=== PATIENT | female | born 1950 | race Caucasian/White ===

== ENCOUNTER 2016-11-28 21:24 | Inpatient (IN) | payer OTHER ==
[2016-11-28 22:00] VITALS: BMI 29.7
--- NOTE | 2016-11-28 22:01 | PDOC ---
History of Present Illness - History of Present Illness Initial Comments: 11/28/16 22:53 Patient is a 66 year old female with significant medical hx of HTN, HLD, DM, GERD, CAD, hemorrhoids s/p hemorrhoidectomy, and nephrolithiasis who is presenting to the ED with one week of progressive RLQ pain. Patient reports her RLQ pain is constant and non-radiating. She does not endorse any modifying or alleviating factors. The patient states that two days ago she began having multiple episodes of nausea, vomiting and diarrhea. Today the patient had diarrhea five times. Her last episode of vomiting occurred in the ED prior to interview. The patient was able to walk into the ED upon arrival. Denies any fevers chills, or complaints. Surgical Hx: neurostimulator for urinary incontinence, gastric bypass, hemorrhoidectomy, hernia, cholecystectomy PCP: Orin Negro MD GI: Joseph Potter MD <Susana Jones - Last Filed: 11/28/16 23:06> <Judith Emanuel - Last Filed: 11/29/16 00:08> <Amalia Condon - Last Filed: 11/29/16 06:50> - General Chief Complaint: Nausea/Vomiting Stated Complaint: STOMACH PAIN Time Seen by Provider: 11/28/16 21:54 Past History <Susana Jones - Last Filed: 11/28/16 23:06> - Past Medical History Anemia: No Asthma: No Cancer: No Cardiac Disorders: Yes (CAD) CVA: No COPD: No CHF: No Dementia: No Diabetes: Yes GI Disorders: Yes (DIVERTICULITIS, DYSPHAGIA, GERD) Disorders: Yes (kidney stone) HTN: Yes Hypercholesterolemia: Yes Kidney Stones: Yes Liver Disease: No Seizures: No Thyroid Disease: No - Surgical History Abdominal Surgery: Yes (hernia; GASTRIC BYPASS10/07) Appendectomy: No Cardiac Surgery: No Cholecystectomy: Yes Lung Surgery: No Neurologic Surgery: No Orthopedic Surgery: No - Psycho/Social/Smoking Cessation Hx Anxiety: No Suicidal Ideation: No Smoking Status: No Smoking History: Never smoked Have you smoked in the past 12 months: No Number of Cigarettes Smoked Daily: 0 Information on smoking cessation initiated: No Hx Alcohol Use: No Drug/Substance Use Hx: No Substance Use Type: None <Judith Emanuel - Last Filed: 11/29/16 00:08> <Amalia Condon - Last Filed: 11/29/16 06:50> - Past Medical History Allergies/Adverse Reactions: Allergies Allergy/AdvReac Type Severity Reaction Status Date / Time No Known Drug Allergies Allergy Verified 11/28/16 21:39 Home Medications: Ambulatory Orders Acetaminophen [Extra Strength Non-Aspirin] 500 mg PO Q4H 11/29/16 Cetirizine HCl 10 mg PO HS 11/29/16 Clonazepam [Klonopin -] 0.5 mg PO TID 11/29/16 Dexlansoprazole [Dexilant] 30 mg PO DAILY 11/29/16 Diphenhydramine HCl [Benadryl -] 50 mg PO ONCE 11/29/16 Duloxetine HCl [Cymbalta -] 60 mg PO BID 11/29/16 Escitalopram Oxalate [Lexapro -] 20 mg PO DAILY 11/29/16 Gabapentin 300 mg PO HS 11/29/16 Meloxicam [Mobic] 15 mg PO DAILY 11/29/16 Montelukast Na [Singulair -] 10 mg PO DAILY 11/29/16 Olopatadine HCl [Pataday] 2.5 ml OP DAILY 11/29/16 Pramipexole Dihydrochloride [Mirapex -] 0.25 mg PO DAILY 11/29/16 Simvastatin 20 mg PO DAILY 11/29/16 Vitamin B Complex [B Complex] 1 tab PO DAILY 11/29/16 Review of Systems - Review of Systems Comments:: 11/28/16 23:01 CONSTITUTIONAL: Absent: fever, chills, diaphoresis, generalized weakness, malaise, loss of appetite HEENT: Absent: rhinorrhea, nasal congestion, throat pain, throat swelling, difficulty swallowing, mouth swelling, ear pain, eye pain, visual changes CARDIOVASCULAR: Absent: chest pain, syncope, palpitations, irregular heart rate, lightheadedness , peripheral edema RESPIRATORY: Absent: cough, shortness of breath, dyspnea with exertion, orthopnea, wheezing, stridor, hemoptysis GASTROINTESTINAL: Present: RLQ pain, nausea, vomiting, diarrhea Absent: abdominal distension, constipation, melena, hematochezia GENITOURINARY: Absent: dysuria, frequency, urgency, hesitancy, hematuria, flank pain, genital pain MUSCULOSKELETAL: Absent: myalgia, arthralgia, joint swelling SKIN: Absent: rash, itching, pallor HEMATOLOGIC/IMMUNOLOGIC: Absent: easy bleeding, easy bruising, lymphadenopathy, frequent infections ENDOCRINE: Absent: unexplained weight gain, unexplained weight loss, heat intolerance, cold intolerance NEUROLOGIC: Absent: headache, focal weakness or paresthesia, dizziness, unsteady gait, seizure, mental status changes, bladder or bowel incontinence. PSYCHIATRIC: Absent: anxiety, depression, suicidal or homicidal ideation, hallucinations <Susana Jones - Last Filed: 11/28/16 23:06> *Physical Exam - Vital Signs Last Vital Signs Temp Pulse Resp BP Pulse Ox 97.7 F 71 19 126/67 98 11/28/16 21:41 11/28/16 21:41 11/28/16 21:41 11/28/16 21:41 11/28/16 21:41 - Physical Exam Comments: 11/28/16 23:02 GENERAL: Well developed, well nourished. Awake and alert. No acute distress. HEENT: Normocephalic, atraumatic. PERRLA, EOMI. No conjunctival pallor. Sclera are non- icteric. Moist mucous membranes. Oropharynx is clear. NECK: Supple. Full ROM. No JVD. Carotid pulses 2+ and symmetric, without bruits. No thyromegaly. No lymphadenopathy. CARDIOVASCULAR: Regular rate and rhythm. No murmurs, rubs, or gallops. Distal pulses are 2+ and symmetric. PULMONARY: No evidence of respiratory distress. Lungs clear to auscultation bilaterally. No wheezing, rales or rhonchi. ABDOMINAL: Soft. RLQ tenderness. Non-distended. No rebound or guarding. No organomegaly. Normoactive bowel sounds. MUSCULOSKELETAL: Normal range of motion at all joints. No bony deformities or tenderness. No CVA tenderness. EXTREMITIES: No cyanosis. No clubbing. No edema. No calf tenderness. SKIN: Warm and dry. Normal capillary refill. No rashes. No jaundice. NEUROLOGICAL: Alert, awake, appropriate. Cranial nerves 2-12 intact. Normal speech. Gait is normal without ataxia. PSYCHIATRIC: Cooperative. Good eye contact. Appropriate mood and affect. <Susana Jones - Last Filed: 11/28/16 23:06> - Vital Signs Last Vital Signs Temp Pulse Resp BP Pulse Ox 97.7 F 71 19 126/67 98 11/28/16 21:41 11/28/16 21:41 11/28/16 21:41 11/28/16 21:41 11/28/16 21:41 <Judith Emanuelh - Last Filed: 11/29/16 00:08> - Vital Signs Last Vital Signs Temp Pulse Resp BP Pulse Ox 97.7 F 71 19 126/67 98 11/28/16 21:41 11/28/16 21:41 11/28/16 21:41 11/28/16 21:41 11/28/16 21:41 <CondonAmalia - Last Filed: 11/29/16 06:50> Heart Score/ECG Review #1 11/28/16 23:06 Normal sinus rhythm at 63 bpm Possible Left atrial enlargement Left ventricular hypertrophy Inferior infarct, age undetermined Abnormal ECG <Susana Jones - Last Filed: 11/28/16 23:06> ED Treatment Course - LABORATORY CBC & Chemistry Diagram: 11/28/16 22:05 11/28/16 22:05 - ADDITIONAL ORDERS Additional order review: Laboratory Results 11/28/16 22:05 Sodium Cancelled Potassium Cancelled Chloride Cancelled Carbon Dioxide Cancelled Anion Gap Cancelled BUN Cancelled Creatinine Cancelled Creat Clearance w eGFR Cancelled Random Glucose Cancelled Calcium Cancelled Total Bilirubin Cancelled AST Cancelled ALT Cancelled Alkaline Phosphatase Cancelled Total Protein Cancelled Albumin Cancelled Lipase Cancelled 11/28/16 22:05 RBC 4.67 MCV 87.7 MCHC 32.1 RDW 13.4 MPV 7.6 Neutrophils % 62.8 D Lymphocytes % 23.6 D Monocytes % 9.6 D Eosinophils % 2.8 D Basophils % 1.2 - Medications Given in the ED: ED Medications Discontinued Medications Generic Name Dose Route Start Last Admin Trade Name Freq PRN Reason Stop Dose Admin Hydromorphone HCl 0.5 mg 11/28/16 22:08 11/28/16 22:24 Dilaudid Injection - IVPUSH 11/28/16 22:09 0.5 mg ONCE ONE Administration Ondansetron HCl 4 mg 11/28/16 22:02 11/28/16 22:16 Zofran Injection IVPB 11/28/16 22:03 4 mg ONCE ONE Administration <Susana Jones - Last Filed: 11/28/16 23:06> - LABORATORY CBC & Chemistry Diagram: 11/28/16 22:05 11/28/16 22:05 <Judith Emanuel - Last Filed: 11/29/16 00:08> - LABORATORY CBC & Chemistry Diagram: 11/28/16 22:05 11/28/16 23:55 - ADDITIONAL ORDERS Additional order review: Laboratory Results 11/29/16 11/28/16 11/28/16 00:25 23:55 23:11 Sodium 145 Cancelled Potassium 4.4 Cancelled Chloride 111 H Cancelled Carbon Dioxide 23 Cancelled Anion Gap 11 Cancelled BUN 17 Cancelled Creatinine 0.6 D Cancelled Creat Clearance w eGFR > 60 Cancelled Random Glucose 102 D Cancelled Calcium 8.3 L Cancelled Total Bilirubin 0.2 D Cancelled AST 12 L D Cancelled ALT 20 D Cancelled Alkaline Phosphatase 133 H D Cancelled Total Protein 6.7 Cancelled Albumin 3.2 L Cancelled Lipase Urine Color Straw Urine Appearance Clear Urine pH 6.0 Urine Protein Negative Urine Glucose (UA) Negative Urine Ketones Negative Urine Blood Negative Urine Nitrite Negative Urine Bilirubin Negative Urine Urobilinogen Negative Ur Leukocyte Esterase Negative 11/28/16 22:05 Sodium Cancelled Potassium Cancelled Chloride Cancelled Carbon Dioxide Cancelled Anion Gap Cancelled BUN Cancelled Creatinine Cancelled Creat Clearance w eGFR Cancelled Random Glucose Cancelled Calcium Cancelled Total Bilirubin Cancelled AST Cancelled ALT Cancelled Alkaline Phosphatase Cancelled Total Protein Cancelled Albumin Cancelled Lipase Cancelled Urine Color Urine Appearance Urine pH Urine Protein Urine Glucose (UA) Urine Ketones Urine Blood Urine Nitrite Urine Bilirubin Urine Urobilinogen Ur Leukocyte Esterase 11/28/16 22:05 RBC 4.67 MCV 87.7 MCHC 32.1 RDW 13.4 MPV 7.6 Neutrophils % 62.8 D Lymphocytes % 23.6 D Monocytes % 9.6 D Eosinophils % 2.8 D Basophils % 1.2 - Medications Given in the ED: ED Medications Discontinued Medications Generic Name Dose Route Start Last Admin Trade Name Freq PRN Reason Stop Dose Admin Hydromorphone HCl 0.5 mg 11/28/16 22:08 11/28/16 22:24 Dilaudid Injection - IVPUSH 11/28/16 22:09 0.5 mg ONCE ONE Administration Sodium Chloride 1,000 mls @ 1,000 mls/hr 11/28/16 22:02 11/28/16 22:16 Normal Saline - IV 11/28/16 23:01 1,000 mls/hr ASDIR STA Administration Ondansetron HCl 4 mg 11/28/16 22:02 11/28/16 22:16 Zofran Injection IVPB 11/28/16 22:03 4 mg ONCE ONE Administration <Amalia Condon - Last Filed: 11/29/16 06:50> Medical Decision Making - Medical Decision Making 11/28/16 23:34 66 yo female p/w Vomiting,nausea and diarrhea pt had gastric bypass in 2012, neustimulator for bladder incontinence on exam she had RLQ pain imp-r/o appendicits,sbo,gastroenteritis plan ct scan,antiemetics,IVF 11/29/16 00:09 <Judith Emanuel - Last Filed: 11/29/16 00:08> - Medical Decision Making 11/29/16 02:43 Patient Name: Meghann Matthews THIS IS A PRELIMINARYREPORT FROM [facility] EXAM : CT abdomen and pelvis with contrast IMAGES: 509 EXAM DATE AND TIME: 01:57:34.0 REASON FOR EXAM: Rule out appendicitis COMPARISON: CT abdomen and pelvis March 30, 2012 FINDINGS: Negative for appendicitis. Normal appendix visualized. Minimal dilatation of some loops of distal ileum in the right abdomen. Terminal ileum is collapsed but transition from minimal dilatation to collapsed is gradual and the S. is not definitively an obstruction.. Could be due to peristalsis or ileus. Nevertheless, followup recommended if symptoms persist. The gallbladder is somewhat distended and there are multiple small gallstones. Not present back in 2011. Tiny left renal cyst. Otherwise normal kidneys urinary tract and urinary bladder. Normal liver. Normal spleen. Normal pancreas. Normal adrenal glands. Prior gastric surgery. Small hiatal hernia. Patient has developed a slight anterolisthesis of L4 on L5 since 2011. THIS DOCUMENT HAS BEEN ELECTRONICALLY SIGNED 11/29/16 06:50 Dr. Moran aware of the patient. <Amalia Condon - Last Filed: 11/29/16 06:50> *DC/Admit/Observation/Transfer - Attestations Scribe Attestion: 11/28/16 23:02 Documentation prepared by Susana Jones, acting as biomedical instrument technician for Judith Emanuel MD. <Susana Jones - Last Filed: 11/28/16 23:06> <Judith Emanuel - Last Filed: 11/29/16 00:08> - Discharge Dispostion Admit: Yes <Amalia Condon - Last Filed: 11/29/16 06:50> Diagnosis at time of Disposition: Abdominal pain, Ileus, Intractable vomiting with nausea - Referrals
[2016-11-28] MEDS ORDERED: SODIUM CHLORIDE 1,000 ML IV STA (22:02)
[2016-11-28] MEDS ORDERED: ONDANSETRON 4 MG/2 ML VIAL IVPB ONE (22:02)
[2016-11-28] MEDS ORDERED: HYDROmorphone HCL CARPU-JECT 1 MG/1 ML DISP.SYRIN IVPUSH ONE (22:08)
[2016-11-28] MEDS ORDERED: ONDANSETRON 4 MG/2 ML VIAL ONE (22:11)
[2016-11-28 22:14] LABS: BASOPHIL 1.2 % (0-2.0); EOSINOPHIL 2.8 % (0-4.5); MCH 28.2 pg (25.7-33.7); MCHC 32.1 g/dl (32.0-36.0); MEAN CELL VOLUME 87.7 fl (80-96); MEAN PLT VOLUME 7.6 fl (7.5-11.1); NEUTROPHILS 62.8 % (42.8-82.8); PLATELET COUNT 363 K/MM3 (134-434); RDW 13.4 % (11.6-15.6)
[2016-11-28] MEDS ORDERED: HYDROmorphone HCL CARPU-JECT 1 MG/1 ML DISP.SYRIN ONE (22:22)
[2016-11-29 00:32] LABS: ALBUMIN 3.2 g/dl (3.4-5.0); ANION GAP 11 (8-16); BILIRUBIN,TOTAL 0.2 mg/dL (0.2-1.0); CALCIUM 8.3 mg/dL (8.5-10.1); CO2 23 mmol/L (21-32); COCKROFT - GAULT 110.9505; CREATININE 0.6 mg/dL (0.55-1.02); GLUCOSE,RANDOM 102 mg/dL (74-106); SGOT/AST 12 U/L (15-37); SGPT/ALT 20 U/L (12-78); TOT PROT 6.7 g/dl (6.4-8.2)
[2016-11-29 00:33] LABS: ALK PHOS 133 U/L (45-117)
[2016-11-29 01:29] LABS: URINE APPEARANCE CLEAR; URINE BILIRUBIN NEGATIVE (NEGATIVE); URINE BLOOD NEGATIVE (NEGATIVE); URINE COLOR STRAW; URINE GLUCOSE (UA) NEGATIVE (NEGATIVE); URINE KETONE NEGATIVE (NEGATIVE); URINE LEUK ESTERASE NEGATIVE (NEGATIVE); URINE NITRITE NEGATIVE (NEGATIVE); URINE PROTEIN NEGATIVE (NEGATIVE); URINE UROBILINOGEN NEGATIVE E.U./dl (0.2-1.0)
[2016-11-29] MEDS ORDERED: morphine CARPU-JECT 2 MG/1 ML DISP.SYRIN IVPUSH ONE (02:54)
[2016-11-29] MEDS ORDERED: morphine CARPU-JECT 2 MG/1 ML DISP.SYRIN ONE (03:18)
[2016-11-29] MEDS: DEXTROSE 5%-NORMAL SALINE 1,000 ML IV SCH (03:37)
[2016-11-29] MEDS: DULoxetine HCL 30 MG CAPSULE.DR (FP) PO SCH ×2 (10:06→21:44)
[2016-11-29] MEDS: PANTOPRAZOLE SODIUM 100 ML IVPB SCH (10:06)
[2016-11-29] MEDS: HEPARIN NA (PORCINE) 5,000 UNITS/ML 1ML VIAL SQ SCH ×2 (10:06→21:42)
[2016-11-29] MEDS: D5-1/2NS+20 MEQ KCL - 1,000 ML IV SCH ×2 (10:13→21:42)
[2016-11-29] MEDS: PRAMIPEXOLE DIHYDROCHLORIDE 0.25 MG TABLET PO SCH ×2 (10:13→15:53)
[2016-11-29] MEDS: LORATADINE 10 MG TABLET PO SCH (10:13)
--- NOTE | 2016-11-29 11:02 | HP ---
Admitting History and Physical - Primary Care Physician PCP: Orin Negro I - Admission Chief Complaint: came in for right hip pain and right lower quadrant pain History of Present Illness: - History of Present Illness Initial Comments: 11/28/16 22:53 Patient is a 66 year old female with significant medical hx of HTN, HLD, DM, GERD, CAD, hemorrhoids s/p hemorrhoidectomy, and nephrolithiasis who is presenting to the ED with one week of progressive RLQ pain. Patient reports her RLQ pain is constant and non-radiating. She does not endorse any modifying or alleviating factors. The patient states that two days ago she began having multiple episodes of nausea, vomiting and diarrhea. Today the patient had diarrhea five times. Her last episode of vomiting occurred in the ED prior to interview. The patient was able to walk into the ED upon arrival. Denies any fevers chills, or complaints. Surgical Hx: neurostimulator for urinary incontinence, gastric bypass, hemorrhoidectomy, hernia, cholecystectomy PCP: Orin Negro MD GI: Joseph Potter MD today per patient right lower back pain radiating to right groin and right hip no vomitting History Source: Patient, Medical Record - Past Medical History Cardiovascular: Yes: HTN, Hyperlipdemia Gastrointestinal: Yes: GERD ...: No Endocrine: Yes: Diabetes Mellitus - Smoking History Smoking history: Never smoked Have you smoked in the past 12 months: No Aproximately how many cigarettes per day: 0 - Alcohol/Substance Use Hx Alcohol Use: No Home Medications - Allergies Allergies/Adverse Reactions: Allergies Allergy/AdvReac Type Severity Reaction Status Date / Time No Known Drug Allergies Allergy Verified 11/28/16 21:39 - Home Medications Home Medications: Ambulatory Orders Acetaminophen [Extra Strength Non-Aspirin] 500 mg PO Q4H 11/29/16 Cetirizine HCl 10 mg PO HS 11/29/16 Clonazepam [Klonopin -] 0.5 mg PO TID 11/29/16 Dexlansoprazole [Dexilant] 30 mg PO DAILY 11/29/16 Diphenhydramine HCl [Benadryl -] 50 mg PO ONCE 11/29/16 Duloxetine HCl [Cymbalta -] 60 mg PO BID 11/29/16 Escitalopram Oxalate [Lexapro -] 20 mg PO DAILY 11/29/16 Gabapentin 300 mg PO HS 11/29/16 Meloxicam [Mobic] 15 mg PO DAILY 11/29/16 Montelukast Na [Singulair -] 10 mg PO DAILY 11/29/16 Olopatadine HCl [Pataday] 2.5 ml OP DAILY 11/29/16 Pramipexole Dihydrochloride [Mirapex -] 0.25 mg PO DAILY 11/29/16 Simvastatin 20 mg PO DAILY 11/29/16 Vitamin B Complex [B Complex] 1 tab PO DAILY 11/29/16 Physical Examination Vital Signs: Vital Signs Temperature 98.3 F 11/29/16 04:09 Pulse Rate 62 11/29/16 04:09 Respiratory Rate 16 11/29/16 04:09 Blood Pressure 106/59 11/29/16 04:09 O2 Sat by Pulse Oximetry (%) 98 11/29/16 04:12 Constitutional: Yes: Calm HENT: Yes: Other (hearing aide in left ear) Neck: Yes: Trachea Midline Cardiovascular: Yes: Regular Rate and Rhythm, S1, S2 Respiratory: Yes: CTA Bilaterally Gastrointestinal: Yes: Normal Bowel Sounds, Soft Musculoskeletal: Yes: Other (tenderness in right paraspinal and spinal region) Imaging - Results Cat Scan: Report Reviewed Problem List - Problems (1) Abdominal pain Assessment/Plan: spoke to surgery CT scan is benign recommend to feed patient pain is more from lower back and radiating to right groin and thigh xray of hip and xray of spine- r/o foramin stenosis and disc disease neurontin and analgesics dvt ppx Code(s): R10.9 - UNSPECIFIED ABDOMINAL PAIN
--- NOTE | 2016-11-29 11:44 | EKG ---
Test Reason : Blood Pressure : / mmHG Vent. Rate : 063 BPM Atrial Rate : 063 BPM P-R Int : 158 ms QRS Dur : 078 ms QT Int : 412 ms P-R-T Axes : 046 004 014 degrees QTc Int : 421 ms NORMAL SINUS RHYTHM POSSIBLE LEFT ATRIAL ENLARGEMENT LEFT VENTRICULAR HYPERTROPHY INFERIOR INFARCT , AGE UNDETERMINED ABNORMAL ECG WHEN COMPARED WITH ECG OF 18-JAN-2003 22:38, VENT. RATE HAS DECREASED BY 35 BPM T WAVE VARIATION Confirmed by CHU ABDI, JEREMIAH ([id number]) on 11/29/2016 11:43:52 AM Referred By: Confirmed By:JEREMIAH SAGE MD
[2016-11-29] MEDS ORDERED: ACETAMINOPHEN 500 MG TABLET (FP) ONE (15:50)
[2016-11-29] MEDS: clonazePAM 0.5 MG TABLET PO SCH ×2 (15:53→21:41)
--- NOTE | 2016-11-29 16:38 | PN ---
Progress Note (short form) - Note Progress Note: surgery pt seen and examined earlier. computer system was down. full consult dictated. 66f with multiple medical problems presented with upper abd pain, rlq pain, nausea and vomiting with CT showing a gallstone, no cholecystitis, and possible ileus with normal appendix. Pt is now pain free. wbc 10. on exam abd is soft, nt, previous c-sec scar and lap sleeve gastrectomy scar. Plan- suspect enteritis. clinically not acute cholecystitis or sbo. recommend trial of diet and discharge if tolerates.
--- NOTE | 2016-11-29 17:23 | CON.GI ---
Consult Consult Specialty:: GASTROENTEROLOGY - History of Present Illness Chief Complaint: DIARRHEA/VOMITING History of Present Illness: 66 YEAR OLD FEMALE WITH HISTORY OF GASTRIC BYPASS(WITH RECENT WEIGHT GAIN), REDUNDANT COLON AND CONSTIPATION PLUS GERD FROM SURGICAL CHANGES IN HER STOMACH ADMITTED WITH NAUSEA, VOMITING, ABDOMINAL PAIN AND DIARRHEA. SHE WAS MADE NPO, GIVEN IV FLUIDS. SHE DENIES FEVER. SHE WAS AT A [employer] THIS WEEKEND AND AFTER HAD THESE SYMPTOMS. SHE HAS NO DIARRHEA SINCE ADMISSION AND HAS NO MELENA OR BRBPR. SHE HAS NO ABDOMINAL PAIN NOW - History Source History Provided By: Patient Limitations to Obtaining History: No Limitations - Past Medical History Cardio/Vascular: Yes: HTN, Hyperlipdemia Gastrointestinal: Yes: GERD, Hemorrhoids, Other (GASTRIC BYPASS) ...: No Endocrine: Yes: Diabetes Mellitus - Past Surgical History Additional Surgical History: ABOVE - Alcohol/Substance Use Hx Alcohol Use: No - Smoking History Smoking history: Never smoked Have you smoked in the past 12 months: No Aproximately how many cigarettes per day: 0 Home Medications - Allergies Allergies/Adverse Reactions: Allergies Allergy/AdvReac Type Severity Reaction Status Date / Time No Known Drug Allergies Allergy Verified 11/28/16 21:39 - Home Medications Home Medications: Ambulatory Orders Acetaminophen [Extra Strength Non-Aspirin] 500 mg PO Q4H 11/29/16 Cetirizine HCl 10 mg PO HS 11/29/16 Clonazepam [Klonopin -] 0.5 mg PO TID 11/29/16 Dexlansoprazole [Dexilant] 30 mg PO DAILY 11/29/16 Diphenhydramine HCl [Benadryl -] 50 mg PO ONCE 11/29/16 Duloxetine HCl [Cymbalta -] 60 mg PO BID 11/29/16 Escitalopram Oxalate [Lexapro -] 20 mg PO DAILY 11/29/16 Gabapentin 300 mg PO HS 11/29/16 Meloxicam [Mobic] 15 mg PO DAILY 11/29/16 Montelukast Na [Singulair -] 10 mg PO DAILY 11/29/16 Olopatadine HCl [Pataday] 2.5 ml OP DAILY 11/29/16 Pramipexole Dihydrochloride [Mirapex -] 0.25 mg PO DAILY 11/29/16 Simvastatin 20 mg PO DAILY 11/29/16 Vitamin B Complex [B Complex] 1 tab PO DAILY 11/29/16 Family Disease History - Family Disease History Family History: Unremarkable Review of Systems - Review of Systems Constitutional: reports: Loss of Appetite, Weakness Eyes: reports: No Symptoms HENT: reports: No Symptoms Neck: reports: No Symptoms Cardiovascular: reports: No Symptoms Respiratory: reports: No Symptoms Gastrointestinal: reports: Abdominal Pain, Diarrhea, Nausea, Vomiting Genitourinary: reports: No Symptoms Musculoskeletal: reports: No Symptoms Integumentary: reports: No Symptoms Neurological: reports: No Symptoms Endocrine: reports: No Symptoms Hematology/Lymphatic: reports: No Symptoms Physical Exam-GI Vital Signs: Vital Signs Temperature 98.4 F 11/29/16 14:29 Pulse Rate 60 11/29/16 14:29 Respiratory Rate 20 11/29/16 14:29 Blood Pressure 110/62 11/29/16 14:29 O2 Sat by Pulse Oximetry (%) 98 11/29/16 04:12 Constitutional: Yes: Obese Eyes: Yes: Conjunctiva Clear HENT: Yes: Normocephalic Neck: Yes: Supple Cardiovascular: Yes: Regular Rate and Rhythm Respiratory: Yes: Regular Gastrointestinal Inspection: Yes: WNL ...Auscultate: Yes: Normoactive Bowel Sounds ...Palpate: Yes: Soft Extremities: Yes: WNL Imaging - Results Cat Scan: Image Reviewed Problem List - Problems (1) Abdominal pain Assessment/Plan: TODAY'S EXAM IDS BENEIGN. THERE CAN BE NO EVALUATION FROM THIS CT SCAN DUE TO NONCONTRAST BUT THE PHYSICAL EXAM EXAM IS BENEIGN. WOULD SUGGEST ADVANCING DIET AND TO BLAND DIET IN AM. IF TOLERATES CAN GO HOME WITH FOLLOW UP WITH PMD. Code(s): R10.9 - UNSPECIFIED ABDOMINAL PAIN (2) Diarrhea Code(s): R19.7 - DIARRHEA, UNSPECIFIED (3) Gastroenteritis Code(s): K52.9 - NONINFECTIVE GASTROENTERITIS AND COLITIS, UNSPECIFIED
--- NOTE | 2016-11-29 18:52 | CONS ---
DATE OF CONSULTATION: 11/29/2016 REASON FOR CONSULTATION: Ileus. REASON FOR CONSULTATION: This is an inpatient consultation at the request of Jaret Moran M.D. BRIEF HISTORY: This is a 66-year-old female with multiple medical problems including hypertension, hyperlipidemia, diabetes, coronary artery disease, previous myocardial infarction. She has a past surgical history of a sleeve gastrectomy and an open section done through a vertical incision. She also has a history of a bladder stimulator placement and hemorrhoidectomy. She presented to [facility] with abdominal pain occurring in the epigastrium, right upper quadrant, right lower quadrant, and radiating to her back. She also had nausea and vomiting. She had a CAT scan of her abdomen and pelvis, which was essentially unremarkable, but the assistant operator commented that there could be a mild ileus that he was not sure. There was also noted to be a gallstone in the gallbladder without inflammatory changes, and she had an unremarkable appendix. Request is made for a surgical consultation. Since admission, the patient is now pain free, and she is requesting food. PAST MEDICAL HISTORY: As in HPI. In addition, she had diverticulitis by history and kidney stones. PAST SURGICAL HISTORY: As stated in HPI. SOCIAL HISTORY: Negative for alcohol. Negative for tobacco. HOME MEDICATIONS: Include Klonopin, Dexilant, Neurontin, lexapro, Mobic, Singulair, Mirapex, simvastatin, and vitamin B. FAMILY HISTORY: Noncontributory. REVIEW OF SYSTEMS: General: Denies fatigue or malaise. Cardiac: Denies chest pain or palpitations. Respiratory: Denies shortness of breath, wheeze. Gastrointestinal: As in HPI. Denies diarrhea. Denies blood in her stool. Denies recent weight loss. Genitourinary: Denies dysuria. Musculoskeletal: Denies joint pain, joint swelling. Psychiatric: Denies depression, or hearing voices. PHYSICAL EXAMINATION: General: This is an overweight 66-year-old female in no distress. Vital signs: She is afebrile. Has been since admission. HEENT: Head is normocephalic. Sclerae anicteric. Neck: Supple. Chest: Clear. Abdomen: Soft. It is nontender. She has a midline scar below her umbilicus with laparoscopic scars from her sleeve gastrectomy. She is nontender. There are no masses. There are no obvious hernias. Extremities: No edema. LABORATORY: On review of her laboratory, her white blood cell count is normal at 10.0 without a shift. Her chemistries are unremarkable with the exception of a mildly elevated alkaline phosphatase. Her urinalysis is unremarkable. IMAGING: As in HPI. ASSESSMENT: This is a 66-year-old female with abdominal pain, nausea, vomiting with an unremarkable CAT scan who is currently symptom free. She does have gallstones, but I do not believe this is acute cholecystitis based on physical examination, history, and CT findings. She also does not suffer from fatty food intolerance. At this point, since she is clinically well, would recommend trial of diet. If she tolerates, there is no surgical contraindication to discharge. There is also a consideration by the medical service that she could be having back pain that is truly the source of her symptoms and is being evaluated by the medical service. At this point though she does not require antibiotics. I will start her on a diabetic liquid diet, and if she tolerates, she is surgically stable for discharge and could advance her diet over the next few days at home. DO BINTA BREWER/[id number]
[2016-11-29] MEDS: MONTELUKAST NA 10 MG TABLET PO SCH (21:41)
[2016-11-29] MEDS: GABAPENTIN 300 MG CAPSULE (FP) PO SCH (21:41)
[2016-11-29] MEDS: ATORVASTATIN CA 10 MG TABLET (FP) PO SCH (21:42)
[2016-11-30] MEDS: DEXTROSE 5%-NORMAL SALINE 1,000 ML IV SCH (06:05)
[2016-11-30] MEDS: clonazePAM 0.5 MG TABLET PO SCH ×3 (06:06→21:22)
[2016-11-30 07:21] LABS: BASOPHIL 0.3 % (0-2.0); EOSINOPHIL 2.6 % (0-4.5); MCH 29.2 pg (25.7-33.7); MCHC 33.1 g/dl (32.0-36.0); MEAN CELL VOLUME 88.3 fl (80-96); MEAN PLT VOLUME 7.5 fl (7.5-11.1); NEUTROPHILS 73.3 % (42.8-82.8); PLATELET COUNT 318 K/MM3 (134-434); RDW 13.1 % (11.6-15.6); WHITE BLOOD COUNT 8.6 K/mm3 (4.0-10.0)
[2016-11-30 08:01] LABS: ALBUMIN 3.2 g/dl (3.4-5.0); ALK PHOS 128 U/L (45-117); ANION GAP 9 (8-16); BILIRUBIN,TOTAL 0.3 mg/dL (0.2-1.0); CALCIUM 8.6 mg/dL (8.5-10.1); CO2 22 mmol/L (21-32); CREATININE 0.5 mg/dL (0.55-1.02); GLUCOSE,RANDOM 113 mg/dL (74-106); SGOT/AST 15 U/L (15-37); SGPT/ALT 19 U/L (12-78); TOT PROT 6.8 g/dl (6.4-8.2)
[2016-11-30] MEDS: PANTOPRAZOLE SODIUM 100 ML IVPB SCH (09:42)
[2016-11-30] MEDS: DULoxetine HCL 30 MG CAPSULE.DR (FP) PO SCH ×2 (09:46→21:23)
[2016-11-30] MEDS: PRAMIPEXOLE DIHYDROCHLORIDE 0.25 MG TABLET PO SCH (09:46)
[2016-11-30] MEDS: LORATADINE 10 MG TABLET PO SCH (09:46)
[2016-11-30] MEDS: HEPARIN NA (PORCINE) 5,000 UNITS/ML 1ML VIAL SQ SCH ×2 (09:48→21:25)
--- NOTE | 2016-11-30 10:17 | PN ---
Progress Note, Physician Chief Complaint: INTRACTABLE NAUSEA/VOMITING History of Present Illness: N/V/D AFTER SHE WENT OUT TO EAT BUFFET AT [employer]. SEEN BY GI. GASTRITIS? FEELS BETTER TODAY. NO NAUSEA/VOMITING/DIARRHEA TODAY. - Current Medication List Current Medications: Active Medications Atorvastatin Calcium (Lipitor -) 10 mg PO HS [facility] Last Admin: 11/29/16 21:42 Dose: 10 mg Clonazepam (Klonopin -) 0.5 mg PO TID [facility] Last Admin: 11/30/16 06:06 Dose: 0.5 mg Duloxetine HCl (Cymbalta -) 60 mg PO BID [facility] Last Admin: 11/30/16 09:46 Dose: 60 mg Gabapentin (Neurontin -) 300 mg PO HS [facility] Last Admin: 11/29/16 21:41 Dose: 300 mg Heparin Sodium (Porcine) (Heparin -) 5,000 unit SQ BID [facility] Last Admin: 11/30/16 09:48 Dose: Not Given Dextrose/Sodium Chloride (D5-Ns -) 1,000 mls @ 0 mls/hr IV ASDIR [facility] PRN Reason: Wide Open Last Admin: 11/30/16 06:05 Dose: Not Given Pantoprazole Sodium (Protonix 40mg Ivpb (Pre-Docked)) 100 mls @ 200 mls/hr IVPB DAILY [facility] Last Admin: 11/30/16 09:42 Dose: 200 mls/hr Potassium Chloride/Dextrose/Sod Cl (D5-1/2ns+20 Meq Kcl -) 1,000 mls @ 100 mls/ hr IV ASDIR [facility] Last Admin: 11/29/16 21:42 Dose: 100 mls/hr Loratadine (Claritin -) 10 mg PO DAILY [facility] Last Admin: 11/30/16 09:46 Dose: 10 mg Montelukast Sodium (Singulair -) 10 mg PO HS [facility] Last Admin: 11/29/16 21:41 Dose: 10 mg Pramipexole Dihydrochloride (Mirapex -) 0.25 mg PO DAILY [facility] Last Admin: 11/30/16 09:46 Dose: 0.25 mg - Objective Vital Signs: Vital Signs Temperature 98.5 F 11/30/16 09:54 Pulse Rate 72 11/30/16 09:54 Respiratory Rate 18 11/30/16 09:54 Blood Pressure 130/77 11/30/16 09:54 O2 Sat by Pulse Oximetry (%) 93 L 11/29/16 21:00 Constitutional: Yes: Well Nourished, No Distress, Calm Cardiovascular: Yes: Regular Rate and Rhythm Respiratory: Yes: Regular Gastrointestinal: Yes: Normal Bowel Sounds Edema: No Neurological: Yes: Alert, Oriented Labs: CBC, BMP 11/30/16 06:00 11/30/16 06:00 Problem List - Problems (1) Abdominal pain Assessment/Plan: IMPROVED Code(s): R10.9 - UNSPECIFIED ABDOMINAL PAIN (2) Diarrhea Assessment/Plan: IMPROVED Code(s): R19.7 - DIARRHEA, UNSPECIFIED (3) Gastroenteritis Assessment/Plan: IVF, IMPROVED. Code(s): K52.9 - NONINFECTIVE GASTROENTERITIS AND COLITIS, UNSPECIFIED (4) Intractable vomiting with nausea Assessment/Plan: Still has nausea and vomiting, Zofran ordered, seen by GI, diet changed back to full liquids,continue to monitor PO intake. Code(s): R11.2 - NAUSEA WITH VOMITING, UNSPECIFIED Assessment/Plan IVF, ANTI-EMETIC, GI CONSULT.
[2016-11-30] MEDS: D5-1/2NS+20 MEQ KCL - 1,000 ML IV SCH ×2 (10:28→21:22)
[2016-11-30] MEDS ORDERED: ONDANSETRON 4 MG/2 ML VIAL IVPUSH PRN (16:07)
[2016-11-30] MEDS: MONTELUKAST NA 10 MG TABLET PO SCH (21:22)
[2016-11-30] MEDS: GABAPENTIN 300 MG CAPSULE (FP) PO SCH (21:22)
[2016-11-30] MEDS: ATORVASTATIN CA 10 MG TABLET (FP) PO SCH (21:22)
[2016-12-01 06:05] VITALS: TEMP 98.1
[2016-12-01] MEDS: clonazePAM 0.5 MG TABLET PO SCH (06:11)
[2016-12-01 07:40] LABS: MCH 29.2 pg (25.7-33.7); MEAN CELL VOLUME 88.5 fl (80-96); MEAN PLT VOLUME 7.7 fl (7.5-11.1); PLATELET COUNT 339 K/MM3 (134-434); RDW 13.4 % (11.6-15.6); WHITE BLOOD COUNT 8.8 K/mm3 (4.0-10.0)
[2016-12-01 07:51] LABS: ALBUMIN 3.4 g/dl (3.4-5.0); ANION GAP 8 (8-16); CALCIUM 8.9 mg/dL (8.5-10.1); CO2 25 mmol/L (21-32); CREATININE 0.6 mg/dL (0.55-1.02); GLUCOSE,RANDOM 91 mg/dL (74-106); SGOT/AST 11 U/L (15-37); SGPT/ALT 17 U/L (12-78)
[2016-12-01 07:53] LABS: ALK PHOS 135 U/L (45-117); BILIRUBIN,TOTAL 0.4 mg/dL (0.2-1.0)
--- NOTE | 2016-12-01 09:20 | DS ---
Physical Examination Vital Signs: Vital Signs Temperature 98.1 F 12/01/16 06:05 Pulse Rate 61 12/01/16 06:05 Respiratory Rate 20 12/01/16 06:05 Blood Pressure 122/74 12/01/16 06:05 O2 Sat by Pulse Oximetry (%) 94 L 11/30/16 21:00 Cardiovascular: Yes: Regular Rate and Rhythm Respiratory: Yes: Regular, CTA Bilaterally Gastrointestinal: Yes: Normal Bowel Sounds, Soft. No: Tenderness Labs: CBC, BMP 12/01/16 05:35 12/01/16 05:35 Discharge Summary Reason For Visit: INTRACTABLE VOMITING W/NAUSEA/ABDOMINAL PAIN ILEUS Current Active Problems Abdominal pain (Acute) Diarrhea (Acute) Gastroenteritis (Acute) Ileus (Acute) Intractable vomiting with nausea (Acute) Hospital Course: 11/28/16 22:53 Patient is a 66 year old female with significant medical hx of HTN, HLD, DM, GERD, CAD, hemorrhoids s/p hemorrhoidectomy, and nephrolithiasis who is presenting to the ED with one week of progressive RLQ pain. Patient reports her RLQ pain is constant and non-radiating. She does not endorse any modifying or alleviating factors. The patient states that two days ago she began having multiple episodes of nausea, vomiting and diarrhea. Today the patient had diarrhea five times. Her last episode of vomiting occurred in the ED prior to interview. The patient was able to walk into the ED upon arrival. Denies any fevers chills, or complaints. Surgical Hx: neurostimulator for urinary incontinence, gastric bypass, hemorrhoidectomy, hernia, cholecystectomy PCP: Orin Negro MD GI: Joseph Potter MD today per patient right lower back pain radiating to right groin and right hip no vomitting History Source: Patient, Medical Record - Past Medical History Cardiovascular: Yes: HTN, Hyperlipdemia Gastrointestinal: Yes: GERD ...: No Endocrine: Yes: Diabetes Mellitus Problems (1) Abdominal pain Assessment/Plan: RESOLVED TOERATING DIET Code(s): R10.9 - UNSPECIFIED ABDOMINAL PAIN (2) Diarrhea Assessment/Plan: IMPROVED Code(s): R19.7 - DIARRHEA, UNSPECIFIED (3) Gastroenteritis Assessment/Plan: DC IVF, IMPROVED. Code(s): K52.9 - NONINFECTIVE GASTROENTERITIS AND COLITIS, UNSPECIFIED (4) Intractable vomiting with nausea Assessment/Plan: BETTER ON MEDS OBSERVE Code(s): R11.2 - NAUSEA WITH VOMITING, UNSPECIFIED WILL DC HOME AND FURTHER W/U OUTPATIENT Condition: Improved - Instructions Referrals: Orin Negro MD [Primary Care Provider] - 1 Week Disposition: HOME - Home Medications Comprehensive Discharge Medication List: Ambulatory Orders Acetaminophen [Extra Strength Non-Aspirin] 500 mg PO Q4H 11/29/16 Cetirizine HCl 10 mg PO HS 11/29/16 Clonazepam [Klonopin -] 0.5 mg PO TID 11/29/16 Dexlansoprazole [Dexilant] 30 mg PO DAILY 11/29/16 Duloxetine HCl [Cymbalta -] 60 mg PO BID 11/29/16 Escitalopram Oxalate [Lexapro -] 20 mg PO DAILY 11/29/16 Gabapentin 300 mg PO HS 11/29/16 Montelukast Na [Singulair -] 10 mg PO DAILY 11/29/16 Olopatadine HCl [Pataday] 2.5 ml OP DAILY 11/29/16 Pramipexole Dihydrochloride [Mirapex -] 0.25 mg PO DAILY 11/29/16 Simvastatin 20 mg PO DAILY 11/29/16 Pantoprazole Sodium [Protonix -] 40 mg PO DAILY #30 tab 12/01/16
[2016-12-01 09:46] VITALS: BP 120/69; PULSE 64
[2016-12-01] MEDS ORDERED: PANTOPRAZOLE 40 MG TABLET (FP) PO SCH (10:00)
[2016-12-01] MEDS: DULoxetine HCL 30 MG CAPSULE.DR (FP) PO SCH (10:19)
[2016-12-01] MEDS: PRAMIPEXOLE DIHYDROCHLORIDE 0.25 MG TABLET PO SCH (10:20)
[2016-12-01] MEDS: LORATADINE 10 MG TABLET PO SCH (10:20)
[2016-12-01] MEDS: HEPARIN NA (PORCINE) 5,000 UNITS/ML 1ML VIAL SQ SCH (10:20)
== END 2016-12-01 11:46 | disposition home or self-care (01) | DRG 392 ==
LOC: JER 21:24 → JERBED 11-29 02:56 → UNDOADMIN 11-29 03:04 → JERBED 11-29 03:04 → J7W 11-29 05:22
PROVIDERS: ADMIT Family Medicine; ATTEND Family Medicine
DX: K52.9 Noninfective gastroenteritis and colitis, unspecified (principal); K56.7 Ileus, unspecified; R11.2 Nausea with vomiting, unspecified; I10 Essential (primary) hypertension; E78.5 Hyperlipidemia, unspecified; E11.9 Type 2 diabetes mellitus without complications; K21.9 Gastro-esophageal reflux disease without esophagitis; I25.10 Atherosclerotic heart disease of native coronary artery without angina pectoris
CPT/HCPCS: 36415; 72100-TC; 73523-TC; 74020-TC; 74177-TC; 80053; 81003; 85025; 85027; 93005; 93010; 99284-25

== ENCOUNTER 2017-02-22 06:23 | Day surgery (SDC) | payer OTHER ==
[2017-02-22 06:39] VITALS: BMI 30.9
[2017-02-22] MEDS ORDERED: PROPOFOL 20 ML ONE ×2 (07:58)
[2017-02-22] MEDS ORDERED: MIDAZOLAM HCL 2 MG/2 ML SINGLE DOSE VIAL ONE ×2 (07:59)
[2017-02-22] MEDS ORDERED: LEVOFLOXACIN 500 MG PREMIX BAG IVPB ONE (08:17)
[2017-02-22] MEDS ORDERED: PHENYLEPHRINE HCL 10 MG/1 ML SINGLE DOSE VIAL ONE (08:25)
[2017-02-22] MEDS ORDERED: oxyCODONE HCL 5 MG TABLET PO PRN (08:42)
[2017-02-22] MEDS ORDERED: KETOROLAC TROMETHAMINE 30 MG/1 ML VIAL ONE (08:44)
[2017-02-22] MEDS ORDERED: DEXTROSE 5%-0.45% SALINE 1,000 ML IV SCH (08:45)
--- NOTE | 2017-02-22 08:46 | OP ---
Operative Note - Note: Operative Date: 02/22/17 Pre-Operative Diagnosis: left kidney stone Operation: ESWL Findings: 5mm left kidney stone mid pole Post-Operative Diagnosis: Same as Pre-op Surgeon: Andrea Cortez Anesthesia: General Estimated Blood Loss (mls): 0 Operative Report Dictated: Yes
[2017-02-22] MEDS ORDERED: ONDANSETRON 4 MG/2 ML VIAL IVPUSH PRN (08:54)
[2017-02-22] MEDS ORDERED: LACTATED RINGERS SOLUTION 1,000 ML IV SCH (09:00)
[2017-02-22 09:18] VITALS: TEMP 97.8
[2017-02-22 10:19] VITALS: PULSE 59
--- NOTE | 2017-02-22 11:08 | OP ---
DATE OF OPERATION: 02/22/2017 PREOPERATIVE DIAGNOSIS: Left kidney stone. POSTOPERATIVE DIAGNOSIS: Left kidney stone. PROCEDURE: Extracorporeal shock wave lithotripsy. SURGEON: Guerline Love MD INDICATIONS: Patient is a 66-year-old female noted to have a 5-mm stone in the left kidney. After reviewing treatment options, patient elected to undergo ESWL, understanding the risks of bleeding, infection, inability to fragment stone, potential need for additional procedures. DESCRIPTION OF PROCEDURE: After informed consent was obtained, the patient was taken to the OR, placed supine on the ESWL table. Using ultrasound, 5-mm stone was seen in the mid pole of the left kidney. Then, 2500 shocks were delivered at approximately 80% of maximum kV. There appeared to be fragmentation of the stone on ultrasound. This active ultrasound was used throughout the procedure to confirm that the treatment crosshairs were centered on the stone. Patient was then awoken from anesthesia and transferred to the recovery room in stable condition. There were no complications. There was no blood loss. GUERLINE LOVE M.D. [id number]
[2017-02-22 13:05] VITALS: BP 119/70
== END 2017-02-22 12:30 | disposition home or self-care (01) ==
LOC: JASU-SURG 06:23
PROVIDERS: ATTEND Urology
PROC: 0TF4XZZ Fragmentation in Left Kidney Pelvis, External Approach (ICD-10-PCS; principal; 2017-02-22 08:00)
DX: N20.0 Calculus of kidney (principal)
CPT/HCPCS: 94760

== ENCOUNTER 2017-04-07 05:04 | Day surgery (SDC) | payer OTHER ==
[2017-04-01 10:50] VITALS: BMI 29.2
[2017-04-07 06:59] VITALS: TEMP 98.2
[2017-04-07] MEDS ORDERED: PROPOFOL 20 ML ONE ×2 (07:16→07:48)
[2017-04-07] MEDS ORDERED: SUCCINYLCHOLINE CHLORIDE 200 MG/10 ML VIAL ONE (07:16)
[2017-04-07] MEDS ORDERED: MIDAZOLAM HCL 2 MG/2 ML SINGLE DOSE VIAL ONE (07:42)
[2017-04-07] MEDS ORDERED: ceFAZolin SODIUM 1 GM VIAL ONE (07:51)
[2017-04-07] MEDS ORDERED: ceFAZolin SODIUM 1 GM VIAL IVPB ONE (07:52)
[2017-04-07] MEDS ORDERED: LIDOCAINE HCL 1%, 10 MG/ML (20ML VIAL) ONE ×2 (07:57→08:08)
[2017-04-07] MEDS ORDERED: LIDOCAINE HCL 1%, 10 MG/ML (20ML VIAL) PNB ONE (08:03)
[2017-04-07] MEDS ORDERED: oxyCODONE HCL 5 MG TABLET PO PRN (08:27)
--- NOTE | 2017-04-07 08:29 | OP ---
Operative Note - Note: Operative Date: 04/07/17 Pre-Operative Diagnosis: malfunctioning interstim Operation: removal interstim device Post-Operative Diagnosis: Same as Pre-op Surgeon: Andrea Cortez Anesthesia: General Specimens Removed: interstim device Estimated Blood Loss (mls): 5 Operative Report Dictated: Yes
[2017-04-07] MEDS ORDERED: DEXTROSE 5%-0.45% SALINE 1,000 ML IV SCH (08:30)
[2017-04-07] MEDS ORDERED: PROMETHAZINE HCL 25 MG/1 ML VIAL IVPUSH PRN (08:42)
[2017-04-07] MEDS ORDERED: ONDANSETRON 4 MG/2 ML VIAL IVPUSH PRN (08:42)
[2017-04-07] MEDS ORDERED: LACTATED RINGERS SOLUTION 1,000 ML IV SCH (08:45)
--- NOTE | 2017-04-07 08:50 | OP ---
DATE OF OPERATION: 04/07/2017 PREOPERATIVE DIAGNOSIS: Malfunctioning InterStim device. POSTOPERATIVE DIAGNOSIS: Malfunctioning InterStim device. PROCEDURE: Removal of InterStim device. SURGEON: Andrea Cortez MD INDICATION: The patient is a 66-year-old female status post InterStim placement several years ago and with malfunctioning device. She elected to undergo InterStim removal. DESCRIPTION OF PROCEDURE: Patient taken to the OR, placed prone on the operating room table. After anesthesia was administered, the lower back was prepped and draped in standard surgical fashion. An incision over the prior right gluteal incision was created until the battery pack was identified and removed out of the wound. Then a small midline incision was created in the gluteal area where the wire dipped down towards the S3 foramen. Through this incision the wire was removed, clamped and pulled out in its entirety so the entire lead was removed. Fluoroscopy confirmed that there were no other residual device components left inside the patient, and the entire device was sent to Pathology for analysis. First the wound was irrigated with antibiotic solution, then attention was turned to wound closure. The small midline incision was closed in subcutaneous fashion with 4-0 Monocryl. The prior battery site in the right gluteal area was closed in 2 layers, first with a 3-0 chromic in interrupted fashion then a 4-0 Monocryl. Dermabond was then placed with dry sterile dressing. Patient was awoken from anesthesia and transferred to recovery in stable condition. There were no complications. Estimated blood loss was minimal. Erick [id number]
[2017-04-07] MEDS ORDERED: oxyCODONE HCL 5 MG TABLET ONE (09:57)
[2017-04-07 11:13] VITALS: BP 129/80; PULSE 60
--- NOTE | 2017-04-11 11:40 | PATH ---
Surgical Pathology Report Patient Name: LUCÍA COLLINS [facility]. Rec. #: [id number] /Age/Gender: 1950 (Age: 66) / F Account: [id number] Location: [facility] Taken: 04/07/2017 Received: 04/07/2017 Reported: 04/11/2017 Physicians: Andrea Crotez M.D. Specimen(s) Received A: REMOVED INTERSTRIM IMPLANT B: SCAR TISSUE FROM IMPLANT SITE Clinical History Malfunctioning interstim Final Diagnosis A. AIR CONDITIONING TECHNICIAN, REMOVAL: AIR CONDITIONING TECHNICIAN CONSISTENT WITH INTERSTIM IMPLANT (GROSS ONLY) B. SKIN, SITE NOT SPECIFIED, EXCISION: SKIN WITH DERMAL FIBROSIS CONSISTENT WITH SCAR. Electronically Signed Fer Cook M.D. Gross Description A. Received fresh labeled "removed interstim implant," is a 5.0 x 4.2 x 0.7 cm mccauley metallic device, consistent with a battery. The specimen has the following inscription: "[employer] InterStim II SN: [id number]." The specimen has a 12 cm in length mccauley metallic wire extending from one aspect. Separately received within the same container is a 15 cm in length additional portion of gomes metallic wire. No soft tissue is present. No sections are submitted, gross only. B. Received in formalin labeled "scar tissue from implant," is a 4.0 x 0.3 cm amezquita, elliptical, unoriented portion of skin excised to depth of 0.3 cm. The epidermal surface displays a linear, well-healed scar. Sign Manufacturer sections are submitted in one cassette. 04/08/201704/08/2017
== END 2017-04-07 11:05 | disposition home or self-care (01) ==
LOC: JASU-SURG 05:04
PROVIDERS: ATTEND Urology
PROC: 0JPT0MZ Removal of Stimulator Generator from Trunk Subcutaneous Tissue and Fascia, Open Approach (ICD-10-PCS; 2017-04-07)
PROC: 01PY0MZ Removal of Neurostimulator Lead from Peripheral Nerve, Open Approach (ICD-10-PCS; principal; 2017-04-07 07:30)
DX: T85.199A Other mechanical complication of other implanted electronic stimulator of nervous system, initial encounter (principal)
CPT/HCPCS: 76000-TC; 88300-TC; 88304-TC

== ENCOUNTER 2017-08-25 04:59 | Day surgery (SDC) | payer OTHER ==
[2017-08-24 14:11] VITALS: BMI 32.1
[2017-08-25] MEDS ORDERED: BUPIVACAINE HCL/PF 0.5% (5MG/ML) 10 ML VIAL ONE (08:43)
[2017-08-25] MEDS ORDERED: MIDAZOLAM HCL 2 MG/2 ML SINGLE DOSE VIAL ONE ×2 (08:44)
[2017-08-25] MEDS ORDERED: ROCURONIUM BROMIDE 50 MG/5 ML VIAL ONE (08:46)
[2017-08-25] MEDS ORDERED: PROPOFOL 20 ML ONE (08:46)
[2017-08-25] MEDS ORDERED: SODIUM CHLORIDE 0.9% P/F 10 ML VIAL IJ ONE (08:48)
[2017-08-25] MEDS ORDERED: ceFAZolin SODIUM 1 GM VIAL ONE (08:48)
[2017-08-25] MEDS ORDERED: DEXAMETHASONE SOD PHOSPHATE 4 MG/1 ML VIAL ONE (08:48)
[2017-08-25] MEDS ORDERED: LIDOCAINE HCL/PF 2% SDV 5ML VIAL ONE (08:48)
--- NOTE | 2017-08-25 09:09 | HP ---
Satellite H - Chief Complaint Chief Complaint: left shoulder pain, decreased ROM History of Present Illness: left shoulder impingement, RTC tear History Source: Patient Limitations to Obtaining History: No Limitations - Past Medical History Allergies/Adverse Reactions: Allergies Allergy/AdvReac Type Severity Reaction Status Date / Time No Known Drug Allergies Allergy Verified 08/25/17 07:20 Cardiovascular: Yes: HTN, Hyperlipdemia Gastrointestinal: Yes: GERD, Hemorrhoids, Other (GASTRIC BYPASS) Endocrine: Yes: Diabetes Mellitus - Current Medications Current Medications: Home Medications Medication Instructions Recorded Dexlansoprazole [Dexilant] 30 mg PO DAILY 11/29/16 Duloxetine HCl [Cymbalta -] 60 mg PO BID 11/29/16 Montelukast Na [Singulair -] 10 mg PO HS 11/29/16 clonazePAM [Klonopin -] 0.5 mg PO TID 11/29/16 Diphenhydramine HCl 25 mg PO DAILY 08/24/17 Omeprazole 20 mg PO DAILY 08/24/17 Oxybutynin Chloride [Oxybutynin 10 mg PO DAILY 08/24/17 Chloride ER] Pramipexole Dihydrochloride 0.25 mg PO HS 08/24/17 [Mirapex -] Topiramate [Topamax] 50 mg PO BID 08/24/17 Satellite Physical Exam - Physical Examination Vital Signs: Vital Signs Period Temp Pulse Resp BP Sys/Williamson Pulse Ox Last 24 Hr 98.2 F 56 16 134/77 98 General Appearance: Well Nourished ENT: Clear Lung: Clear to auscultation Heart: Regular rate & rhythm Breasts: Soft Abdomen: Soft Extremities: No edema Satellite Impression/Plan - Impression/Plan Impression: left shoulder pain, impingement, RTC tear Operative Procedure: left shoulder arthroscopy, decompression, likely RTC repair Date to be Performed: 08/25/17
[2017-08-25] MEDS ORDERED: ceFAZolin SODIUM 1 GM VIAL IVPB ONE (09:58)
--- NOTE | 2017-08-25 11:23 | OP ---
Operative Note - Note: Operative Date: 08/25/17 ([facility]) Pre-Operative Diagnosis: left shoulder impingement, rct Operation: left shoulder arthroscopy with SAD, DCE Post-Operative Diagnosis: Same as Pre-op Surgeon: Liu Chen [employer] Maintenance Worker: Noe Wang Anesthesiologist/CODING SPECIALIST: Chrissy Jordan Anesthesia: General, Local Specimens Removed: shavings Estimated Blood Loss (mls): 10 Operative Report Dictated: Yes
--- NOTE | 2017-08-25 11:45 | SPEC ---
DATE OF OPERATION: 08/25/2017 PREOPERATIVE DIAGNOSIS: Left shoulder subacromial impingement. POSTOPERATIVE DIAGNOSIS: Left shoulder subacromial impingement. PROCEDURE: Left shoulder arthroscopy, subacromial decompression, and distal clavicle excision. SURGEON: Liu Chen MD BONDING EQUIPMENT OPERATOR: FLORESITA Guzman ANESTHESIOLOGIST: Chrissy Jordan CRNA ANESTHESIA: Left interscalene block and LMA anesthesia. DRAINS: None. COMPLICATIONS: None. BLOOD LOSS: 75 mL BLOOD GIVEN: None. FLUID REPLACEMENT: 1000 mL This patient is a 67-year-old female with a preoperative diagnosis of left shoulder pain, impingement syndrome, and rotator cuff tear. INDICATIONS: After understanding the potential risks, complications, alternatives and benefits of surgery versus nonsurgical treatment, the patient elected to undergo this procedure. PROCEDURE: The patient was brought to the operating room. Peripheral IV placed and left interscalene block was performed. General endotracheal anesthesia was induced after an LMA was not working. The patient was placed into the beach chair position with ample padding throughout. The patient received 1 gram of IV Ancef. The diagnostic arthroscopy was done of the glenohumeral joint. The glenoid, the labrum, the biceps tendon, and the humeral head all looked good. The undersurface of the rotator cuff was frayed but was intact through its entirety. The arthroscope was introduced into the subacromial space. Patient had a tremendous amount of bursitis and the lateral portal was established under direct visualization. A Green cannula was introduced into the joint and a soft tissue bursectomy was performed with ArthroCare wand. This revealed a very large bony spur which was taken down with a 5.5 mm oval bur and a [place] Green shaver. The patient had a very low-lying lateral inferior clavicle; therefore, this was taken down to the level of the AC joint with the asher as well. The debris was removed. Patient had ample space. The arm was put through a range of motion. There was no impingement. The area was copiously irrigated and washed out, debris removed with a shaver. The top surface of the rotator cuff was directly visualized in all planes including full internal and external rotation. Although there were portions of it that were frayed and generative, likely because of her age, there were no adelaide tears and nothing to repair. The most damage was done at the anterior aspect near the rotator interval, and it may have been the rotator interval. The arthroscopy portals were closed with 3-0 nylon sutures. The area was then washed and dried, covered with Xeroform, 4 x 4 gauze, ABDs and tape. Total operative time was about 40 minutes. There were no complications during the case. The patient tolerated the procedure quite well and was bought to the recovery room in stable condition. Erick [id number]
[2017-08-25] MEDS ORDERED: oxyCODONE HCL 5 MG TABLET PO PRN ×2 (12:43)
[2017-08-25] MEDS ORDERED: ONDANSETRON 4 MG/2 ML VIAL IVPUSH PRN (12:43)
[2017-08-25] MEDS ORDERED: LACTATED RINGERS SOLUTION 1,000 ML IV SCH (12:45)
[2017-08-25 13:04] VITALS: TEMP 97.5
[2017-08-25 15:43] VITALS: BP 135/64; PULSE 100
--- NOTE | 2017-08-26 14:39 | PATH ---
Surgical Pathology Report Patient Name: LUCÍA COLLINS [facility]. Rec. #: [id number] /Age/Gender: 1950 (Age: 67) / F Account: [id number] Location: [facility] Taken: 08/25/2017 Received: 08/25/2017 Reported: 08/26/2017 Physicians: Liu Chen M.D. Specimen(s) Received LEFT SHOULDER SHAVINGS Clinical History Left shoulder tear Final Diagnosis LEFT SHOULDER, ARTHROSCOPIC SHAVING: PORTIONS OF SYNOVIUM, CARTILAGE, SKELETAL MUSCLE AND BONE CONSISTENT WITH ARTHROSCOPIC SHAVINGS. Electronically Signed Fer Cook M.D. Gross Description Received in formalin, labeled "left shoulder shavings," is a 4.0 x 3.2 x 0.3 cm. aggregate of amezquita-yellow soft tissue fragments. A business center representative portion is submitted in one cassette. /08/25/201708/25/2017
== END 2017-08-25 14:30 | disposition home or self-care (01) ==
LOC: JASU-SURG 04:59
PROVIDERS: ATTEND Orthopaedic Surgery
PROC: 0PB94ZZ Excision of Right Clavicle, Percutaneous Endoscopic Approach (ICD-10-PCS; principal; 2017-08-25 09:00)
PROC: 0RNJ4ZZ Release Right Shoulder Joint, Percutaneous Endoscopic Approach (ICD-10-PCS; 2017-08-25 09:00)
DX: M75.41 Impingement syndrome of right shoulder (principal)
CPT/HCPCS: 88304-TC